=== PATIENT | male | born 1980 | race Caucasian/White ===

== ENCOUNTER 2024-06-08 08:19 | Day surgery (SDC) | payer BC ==
[~2024-06-08] VITALS: Ht 188 cm; Wt 114.0 kg
[~2024-06-08 08:19] MED LIST: LR 1,000 ML IV SCH; NO HOME MEDICATIONS; Ondansetron 4 MG/2 ML VIAL IV PRN
[2024-06-08] MEDS ORDERED: Lidocaine PF 2% (20 MG/ML) 5 ML VIAL ONE (10:04)
[2024-06-08 10:34] VITALS: BP 120/79; PULSE 81; TEMP 98
[2024-06-08] MEDS ORDERED: INSHUMULINN SQ (10:39)
[2024-06-08] MEDS ORDERED: CRESTOR 10MG10 MG PO (10:40)
[2024-06-08] MEDS ORDERED: SYNTHROID200 MCG/VI IM (10:41)
[2024-06-08] MEDS ORDERED: KALETRA PO (10:42)
[2024-06-08] MEDS ORDERED: PRINIVIL5 MG PO (10:42)
[2024-06-08] MEDS ORDERED: PRIL40 PO (10:43)
[2024-06-08] MEDS ORDERED: CELEXA 20MG20 MG/TAB PO (10:43)
[2024-06-08 11:20] VITALS: BP 113/87; PULSE 65; TEMP 97
--- NOTE | 2024-06-08 11:20 | NUR ---
PATIENT AMBULATED TO CHAIR WITH STEADY GAIT, ASSIST OF 2. ALERT AND AWAKE. DENIES PAIN, NAUSEA AND SHORTNESS OF BREATH. BREATHING REGULAR AND UNLABORED ON ROOM AIR. SKIN WARM AND DRY. IV IN PLACE. NURSE HANDOFF COMPLETED IN ROOM. SEE CHART FOR VITAL SIGNS. PATIENT HAD WATER AND CHOCOLATE PUDDING. BOTH TOLERATED WELL, NO DYSPHAGIA. CALL LIGHT IN REACH.
[2024-06-08 11:30] VITALS: BP 127/80; PULSE 66
[2024-06-08 11:45] VITALS: BP 130/83; PULSE 56
[2024-06-08 12:00] VITALS: BP 125/82; PULSE 59
--- NOTE | 2024-06-08 12:09 | NUR ---
1158: MET WITH PATIENT IN ROOM TO DISCUSS PROCEDURE. 1200: DISCHARGE TEACHING COMPLETED WITH PRINTED EDUCATION AND INSTRUCTIONS SENT HOME WITH PATIENT. PATIENT VERBALIZED UNDERSTANDING OF TEACHING. 1205: IV REMOVED. GAUZE AND COBAN PLACED OVER SITE. 1209: PATIENT DISCHARGED HOME WITH FAMILY TRANSPORT.
== END 2024-06-08 12:09 | disposition home or self-care (01) ==
LOC: SDCO 08:19
DX: Z12.11 Encounter for screening for malignant neoplasm of colon (principal); D12.3 Benign neoplasm of transverse colon; D12.5 Benign neoplasm of sigmoid colon; D12.8 Benign neoplasm of rectum; K20.0 Eosinophilic esophagitis; K22.2 Esophageal obstruction; E10.10 Type 1 diabetes mellitus with ketoacidosis without coma; I10 Essential (primary) hypertension; Z79.899 Other long term (current) drug therapy; Z79.4 Long term (current) use of insulin; Z96.41 Presence of insulin pump (external) (internal)
CPT/HCPCS: C1726; J2704; J7120